=== PATIENT | male | born 1995 | race Caucasian/White ===

== ENCOUNTER 2019-07-19 00:43 | Emergency (ER) | payer SELFPAY ==
[~2019-07-19] VITALS: Ht 172.7 cm; Wt 127.0 kg
[2019-07-19 01:01] VITALS: BP 143/81
== END 2019-07-19 01:34 | disposition left against medical advice (07) ==
LOC: ER 00:43
DX: Z53.21 Procedure and treatment not carried out due to patient leaving prior to being seen by health care provider (principal)